=== PATIENT | female | born 1990 | race Caucasian/White ===

== ENCOUNTER 2017-11-02 19:46 | Emergency (ER) | payer SELFPAY ==
--- NOTE | 2017-11-02 20:03 | EDM.PDOC ---
ED HPI GENERAL MEDICAL PROBLEM - General Chief Complaint: Lower Extremity Injury/Pain Stated Complaint: SLIPPED ON WATER AND HURT LT HIP Time Seen by Provider: 11/02/17 19:49 Source of Information: Reports: Patient History Limitations: Reports: No Limitations - History of Present Illness INITIAL COMMENTS - FREE TEXT/NARRATIVE: HISTORY AND PHYSICAL: History of present illness: 26-year-old female presenting to emergency department with chief complaint of left hip pain after fall with past medical history of left hip surgery. Patient states that around 3 PM today she slipped and fell on some water at work. States that she fell with her left hip outstretched/abducted. She heard a pop and had immediate pain. States that when she straightened her leg out she heard another pop. She initially thought she may have just strained the hip however her pain has continued to increase. She has been taking ibuprofen and Tylenol with very little relief. Current pain is 8/10. Patient did have surgery last year for what sounds like a hip rotator cuff tear. States that she had orthoscopic surgery on the hip with repair of the hip joint. She denies any loss of sensation, range of motion, or strength. She denies any bowel or bladder incontinence. Otherwise patient is healthy and takes no daily medication. On exam patient has good range of motion, neurovascular intact. She is exquisitely tender to palpation of the left lateral aspect of the hip. She also has increased pain with abduction of the left hip. No shortening noticed in comparison of leg length. Review of systems: As per history of present illness and below otherwise all systems reviewed and negative. Past medical history: As per history of present illness and as reviewed below otherwise noncontributory. Surgical history: As per history of present illness and as reviewed below otherwise noncontributory. Social history: No reported history of drug or alcohol abuse. Family history: As per history of present illness and as reviewed below otherwise noncontributory. Physical exam: See above H&P HEENT: Atraumatic, normocephalic, pupils reactive, negative for conjunctival pallor or scleral icterus, mucous membranes moist, throat clear, neck supple, nontender, trachea midline. Lungs: Clear to auscultation, breath sounds equal bilaterally, chest nontender. Heart: S1S2, regular, negative for clicks, rubs, or JVD. Abdomen: Soft, nondistended, nontender. Negative for masses or hepatosplenomegaly. Negative for costovertebral tenderness. Pelvis: Stable nontender. Genitourinary: Deferred. Rectal: Deferred. Extremities: Atraumatic, negative for cords or calf pain. Neurovascular unremarkable. Neuro: Awake, alert, oriented. Cranial nerves II through XII unremarkable. Cerebellum unremarkable. Motor and sensory unremarkable throughout. Exam nonfocal. Diagnostics: Left hip x-ray Therapeutics: Toradol 60 mg IM 1 Ahoskie 10mg PO x1 Ahoskie 5-325 mg PO q 4-6 hrs prn pain #12 Impression: Left hip pain Left hip strain Plan: Left hip x-ray was unremarkable for any acute pathology or fracture. This was communicated to patient. Secondary to the patient's history of hip rotator cuff injury, I did instruct her to follow-up with her primary care provider in [place] as she may need a MRI in the future if she continues to have pain. Patient was discharged in good condition with a prescription for Ahoskie 55 mg by mouth every 6 hours #12. She was instructed to rest, ice, and take anti- inflammatories. She was instructed to return to emergency department if she has any new or worsening symptoms. Definitive disposition and diagnosis as appropriate pending reevaluation and review of above. left hip Pain Score (Numeric/FACES): 9 - Related Data Allergies Allergy/AdvReac Type Severity Reaction Status Date / Time risperidone Allergy Anaphylactic Verified 11/02/17 19:56 Shock Sulfa (Sulfonamide Allergy Rash Verified 11/02/17 19:55 Antibiotics) Home Meds: Home Meds . [No Known Home Meds] 11/02/17 [History] Review of Systems - Review of Systems Review Of Systems: ROS reveals no pertinent complaints other than HPI. ED EXAM, GENERAL - Physical Exam Exam: See Below Course - Vital Signs Last Recorded V/S: Last Vital Signs Temp 97.5 F 11/02/17 19:56 Pulse 98 11/02/17 19:56 Resp 20 11/02/17 19:56 BP 120/97 H 11/02/17 19:56 Pulse Ox 96 11/02/17 19:56 - Orders/Labs/Meds Orders: Active Orders 24 hr Category Date Time Status Hip Min 2V or 3V w Pelvis Lt [CR] Stat Exams 11/02/17 20:03 Taken Meds: Medications Discontinued Medications Generic Name Dose Route Start Last Admin Trade Name Rafal PRN Reason Stop Dose Admin Hydrocodone Bitart/Acetaminophen 1 tab 11/02/17 20:35 11/02/17 20:39 Ahoskie 325-10 Mg PO 11/02/17 20:36 1 tab ONETIME ONE Administration Ketorolac Tromethamine 60 mg 11/02/17 20:06 11/02/17 20:10 Toradol IM 11/02/17 20:07 60 mg ONETIME ONE Administration Departure - Departure Time of Disposition: 20:44 Disposition: Home, Self-Care 01 Condition: Good Clinical Impression: Left hip pain Strain of left hip Qualifiers: Encounter type: initial encounter Qualified Code(s): S76.012A - Strain of muscle, fascia and tendon of left hip, initial encounter - Discharge Information Referrals: PCP,None [Primary Care Provider] - Forms: ED Department Discharge Additional Instructions: My general discharge The following information is given to patients seen in the emergency department who are being discharged to home. This information is to outline your options for follow-up care. We provide all patients seen in our emergency department with a follow-up referral. The need for follow-up, as well as the timing and circumstances, are variable depending upon the specifics of your emergency department visit. If you don't have a primary care physician on staff, we will provide you with a referral. We always advise you to contact your personal physician following an emergency department visit to inform them of the circumstance of the visit and for follow-up with them and/or the need for any referrals to a consulting specialist. The emergency department will also refer you to a specialist when appropriate. This referral assures that you have the opportunity for follow-up care with a specialist. All of these measure are taken in an effort to provide you with optimal care, which includes your follow-up. Under all circumstances we always encourage you to contact your private physician who remains a resource for coordinating your care. When calling for follow-up care, please make the office aware that this follow-up is from your recent emergency room visit. If for any reason you are refused follow-up, please contact the [facility] at and asked to speak to the emergency department charge nurse. [facility] [address] [place] [id number] Please follow-up with your primary care provider in [place] as we discussed. He may need an MRI in the future if continued pain. You may also need physical therapy. Take medication as prescribed. Return to emergency department if any new or worsening symptoms. May use ice as well as anti-inflammatories for pain and inflammation. - My Orders Last 24 Hours: My Active Orders 11/02/17 20:03 Hip Min 2V or 3V w Pelvis Lt [CR] Stat - Assessment/Plan Last 24 Hours: My Active Orders 11/02/17 20:03 Hip Min 2V or 3V w Pelvis Lt [CR] Stat
[2017-11-02] MEDS ORDERED: Ketorolac 60 MG/2 ML SDV IM ONE (20:06)
[2017-11-02] MEDS ORDERED: Acetaminophen/HYDROcodone 325-10 MG Tab PO ONE (20:35)
--- NOTE | 2017-11-03 19:36 | CR ---
EXAM DATE: 11/02/17 PATIENT'S AGE: 26 Patient: VI TREJO Facility: [place], [place] Site . Site : 1990 Study: XRay Hip Left w/pelvis [id number] 8:35:31 PM Ordering Physician: Teddy Hilliard Final Report: Indication: Fall Technique: An AP view of the pelvis and two views of the left hip were obtained. Comparison: None Findings: Both femoral heads are seated within the acetabula. No acute fracture or subluxation is identified. Impression: No acute fracture Dictated by Malgorzata Mcnally MD @ Nov 02 2017 8:36PM (Electronic Signature) Report Signed by Proxy. MARISA
== END 2017-11-02 21:15 | disposition home or self-care (01) ==
LOC: MW.ED 19:46
DX: S76.012A Strain of muscle, fascia and tendon of left hip, initial encounter (principal); Y99.0 Civilian activity done for income or pay; W01.0XXA Fall on same level from slipping, tripping and stumbling without subsequent striking against object, initial encounter; Z88.8 Allergy status to other drugs, medicaments and biological substances; Z88.2 Allergy status to sulfonamides
CPT/HCPCS: 73502; 96372; 99283; A9270; J1885